=== PATIENT | male | born 1985 | race Caucasian/White ===

== ENCOUNTER 2016-09-23 11:43 | Emergency (ER) | payer OTHER ==
[~2016-09-23] VITALS: Ht 185.4 cm; Wt 90.0 kg
[2016-09-23 11:44] VITALS: BP 150/82; PULSE 60; RESP 20; O2SAT 97
--- NOTE | 2016-09-23 13:13 | PD ---
HPI Chief Complaint: GI Complaint Time Seen by Provider: 13:12 Travel History International Travel<30 days: No Contact w/Intl Traveler<30days: No Traveled to known affect area: No History of Present Illness HPI 31-year-old male with history of cannabis induced hyperemesis presents to the emergency department for evaluation of nausea, vomiting since last evening. Patient is having some associated epigastric pain. Patient states that he continues to smoke marijuana despite diagnosis from GI. He states that he was told by his contact agent that he can still continue to smoke marijuana if his body can tolerate it but maybe in smaller doses. Continues to smoke this twice a day. Denies any recent illnesses. States he has felt febrile and chills. No hematemesis or medicated. No diarrhea. No other symptoms to report at this time. [facility] Past Medical History Medical History: Denies Significant Hx Social History Alcohol Use: No Tobacco Use: Yes Substance Use: No Review of Systems Except as stated in HPI: all other systems reviewed are Neg Physical Exam Narrative GENERAL: Well-nourished male patient, ambulatory and in no acute distress SKIN: Warm and dry. HEAD: Atraumatic. Normocephalic. EYES: Pupils equal and round. No scleral icterus. No injection or drainage. ENT: No nasal bleeding or discharge. Mucous membranes pink and moist. NECK: Trachea midline. No JVD. CARDIOVASCULAR: Regular rate and rhythm. No murmur appreciated. RESPIRATORY: No accessory muscle use. Clear to auscultation. Breath sounds equal bilaterally. GASTROINTESTINAL: Abdomen soft, non-tender, nondistended. Hepatic and splenic margins not palpable. MUSCULOSKELETAL: No obvious deformities. No clubbing. No cyanosis. No edema. NEUROLOGICAL: Awake and alert. No obvious cranial nerve deficits. Motor grossly within normal limits. Normal speech. PSYCHIATRIC: Appropriate mood and affect; insight and judgment normal. Data Data Last Documented VS Vital Signs Date Time Temp Pulse Resp B/P Pulse Ox O2 Delivery O2 Flow Rate FiO2 09/23/16 11:44 60 20 150/82 97 Room Air Orders Complete Blood Count With Diff (09/23/16 13:12) Comprehensive Metabolic Panel (09/23/16 13:12) Lipase (09/23/16 13:12) Urinalysis - C+S If Indicated (09/23/16 13:12) Influenzae A/B Antigen (09/23/16 13:13) Labs Laboratory Tests Test 09/23/16 13:32 White Blood Count 16.7 TH/MM3 Red Blood Count 4.99 MIL/MM3 Hemoglobin 14.9 GM/DL Hematocrit 43.3 % Mean Corpuscular Volume 86.9 FL Mean Corpuscular Hemoglobin 29.8 PG Mean Corpuscular Hemoglobin 34.3 % Concent Red Cell Distribution Width 13.3 % Platelet Count 226 TH/MM3 Mean Platelet Volume 8.4 FL Neutrophils (%) (Auto) 86.6 % Lymphocytes (%) (Auto) 6.9 % Monocytes (%) (Auto) 6.4 % Eosinophils (%) (Auto) 0.0 % Basophils (%) (Auto) 0.1 % Neutrophils # (Auto) 14.5 TH/MM3 Lymphocytes # (Auto) 1.2 TH/MM3 Monocytes # (Auto) 1.1 TH/MM3 Eosinophils # (Auto) 0.0 TH/MM3 Basophils # (Auto) 0.0 TH/MM3 CBC Comment DIFF FINAL Differential Comment Urine Color YELLOW Urine Turbidity CLEAR Urine pH 7.0 Urine Specific [place] 1.033 Urine Protein 100 mg/dL Urine Glucose (UA) TRACE mg/dL Urine Ketones 40 mg/dL Urine Occult Blood NEG Urine Nitrite NEG Urine Bilirubin NEG Urine Urobilinogen LESS THAN 2.0 MG/DL Urine Leukocyte Esterase NEG Urine RBC 15 /hpf Urine WBC LESS THAN 1 /hpf Urine Squamous Epithelial <1 /hpf Cells Urine Bacteria FEW /hpf Urine Mucus MANY /lpf Microscopic Urinalysis Comment CULT NOT INDICATED Sodium Level 139 MEQ/L Potassium Level 3.7 MEQ/L Chloride Level 98 MEQ/L Carbon Dioxide Level 29.1 MEQ/L Anion Gap 12 MEQ/L Blood Urea Nitrogen 15 MG/DL Creatinine 1.19 MG/DL Estimat Glomerular Filtration 72 ML/MIN Rate Random Glucose 132 MG/DL Calcium Level 9.4 MG/DL Total Bilirubin 0.5 MG/DL Aspartate Amino Transf 7 U/L (AST/SGOT) Alanine Aminotransferase 25 U/L (ALT/SGPT) Alkaline Phosphatase 57 U/L Total Protein 8.0 GM/DL Albumin 4.4 GM/DL Lipase 104 U/L [facility] Medical Decision Making Medical Screen Exam Complete: Yes Emergency Medical Condition: Yes Medical Record Reviewed: Yes Differential Diagnosis Cannabis induced gastroparesis versus hyperemesis versus gastritis versus viral syndrome versus influenza versus pancreatitis versus cholecystitis Narrative Course 31-year-old male presents to the emergency department for evaluation nausea or vomiting. Workup was initiated in triage. Once a medical bed becomes available , patient will be transferred and [place] but that provider. A medical bed has become available and the patient is no longer in triage. I did discuss with the patient prior to him leaving my room that we were starting his workup and he would be transferred to a medical bed for final disposition. He verbalized understanding of that. He has left AGAINST MEDICAL ADVICE. Diagnosis Primary Impression: Nausea & vomiting Qualified Code: R11.2 - Intractable vomiting with nausea, unspecified vomiting type Disposition: 07 AGAINST MEDICAL ADVICE Condition: Stable LandonNadira verasgemma STREETER Sep 23, 2016 13:13
[2016-09-23 13:49] LABS: AUTOMATED NEUTROPHIL # 14.5 TH/MM3 (1.8-7.7); BACTERIA, URINE FEW /hpf; BASOPHIL % 0.1 % (0.0-2.0); BLOOD, URINE NEG (NEG); COMMENT (UR) CULT NOT INDICATED; CULTURE IF INDICATED CULT NOT INDICATED; GLUCOSE,URINE TRACE mg/dL (NEG); HEMATOCRIT 43.3 % (39.0-51.0); HEMO FLAGS DIFF FINAL; KETONE, URINE 40 mg/dL (NEG); LYMPH % 6.9 % (9.0-44.0); LYMPHOCYTE # 1.2 TH/MM3 (1.0-4.8); MEAN CELL VOLUME 86.9 FL (80.0-100.0); MEAN CORPUSCULAR HEMOGLOBIN 29.8 PG (27.0-34.0); MEAN CORPUSCULAR HGB CONC 34.3 % (32.0-36.0); MONO % 6.4 % (0.0-8.0); MUCUS URINE MANY /lpf (OCC); NEUT % 86.6 % (16.0-70.0); NITRITE,URINE NEG (NEG); PLATELET COUNT 226 TH/MM3 (150-450); RED BLOOD COUNT 4.99 MIL/MM3 (4.50-5.90); RED CELL DISTRIBUTION WIDTH 13.3 % (11.6-17.2); SQUAMOUS EPITHELIAL CELL URINE <1 /hpf (0-5); URINE COLOR YELLOW (YELLW/STRAW); WHITE BLOOD COUNT 16.7 TH/MM3 (4.0-11.0)
[2016-09-23 14:04] LABS: ALT (GPT) 25 U/L (12-78); ANION GAP 12 MEQ/L (5-15); AST (GOT) 7 U/L (15-37); BICARBONATE 29.1 MEQ/L (21.0-32.0); BLOOD UREA NITROGEN 15 MG/DL (7-18); CHLORIDE 98 MEQ/L (98-107); GLOMERULAR FILTRATION RATE 72 ML/MIN (>89); POTASSIUM 3.7 MEQ/L (3.5-5.1); SODIUM (NA) 139 MEQ/L (136-145)
[2016-09-23 14:05] LABS: ALKALINE PHOSPHATASE 57 U/L (45-117); TOTAL BILIRUBIN ADULT 0.5 MG/DL (0.2-1.0)
== END 2016-09-23 15:17 | disposition left against medical advice (07) ==
LOC: NETRI 11:43
DX: R11.2 Nausea with vomiting, unspecified (principal); Z72.0 Tobacco use; F12.20 Cannabis dependence, uncomplicated
CPT/HCPCS: 80053; 81001; 83690; 85025; 99283